=== PATIENT | female | born 1955 | race Caucasian/White ===

== ENCOUNTER → 2023-10-19 09:08 | Outpatient (CLI) | payer MEDICARE, OTHER, SELFPAY ==
[2023-10-19 10:00] LABS: Add Manual Diff / Slide Review NO; Basophils Absolute Auto 0 /uL (0-100); Basophils Percent Auto 0.4 % (0-2); Eosinophils Absolute Auto 100 /uL (0-450); Eosinophils Percent Auto 1.5 % (2-4); Hematocrit 38.4 % (36-46); Hemoglobin 13.2 g/dL (12.0-16.0); Lymphocytes Absolute Auto 1100 /uL (1100-4500); Lymphocytes Percent Auto 17.6 % (25-40); Mean Corpuscular HGB Conc 34.4 % (30-36); Mean Corpuscular Hemoglobin 29.6 PG (26-34); Mean Corpuscular Volume 86.1 fL (80-100); Monocytes Absolute Auto 400 /uL (0-900); Monocytes Percent Auto 6.6 % (3-14); Neutrophils Absolute Auto 4800 /uL (1500-7000); Neutrophils Percent Auto 73.9 % (50-75); Platelet Count 189 X10^3/uL (150-400); Red Blood Cell Count 4.46 X10^6/uL (4.0-5.2); Red Cell Distribution Width 13.5 % (11.6-14.8); White Blood Cell Count 6.5 X10^3/uL (4.5-11.0)
[2023-10-19 10:29] LABS: HEMOLYSIS < 15 (0-50); Iron 55 ug/dL (37-170)
[2023-10-19 10:32] LABS: Hemoglobin A1C% w Est Avg Glu 5.4 % (4.0-6.0)
[2023-10-19 10:35] LABS: Alanine Aminotransferase 23 IU/L (<35); Albumin 4.5 g/dL (3.5-5.0); Albumin Globulin Ratio 1.9 (1.0-2.8); Alkaline Phosphatase 85 U/L (38-126); Aspartate Aminotransferase 22 IU/L (14-36); BUN Creatinine Ratio 28.4 (6-22); Bilirubin Total 0.5 mg/dL (0.2-1.3); Blood Urea Nitrogen 23 mg/dL (7-17); Calcium 9.3 mg/dL (8.4-10.2); Carbon Dioxide 24 mmol/L (22-32); Chloride 106 mmol/L (98-107); Cholesterol 188 mg/dL (140-199); Estimated Glomerular Filt Rate > 60 mL/min (>60); Globulin 2.4 g/dL (1.7-4.1); Glucose 101 mg/dL (80-110); HDL Cholesterol 55 mg/dL (40-60); HEMOLYSIS < 15 (0-50); LDL Cholesterol Calculated 106 mg/dL (<100); Potassium 4.2 mmol/L (3.4-5.1); Sodium 139 mmol/L (137-145); Total Protein 6.9 g/dL (6.3-8.2); Triglycerides 133 mg/dL (35-150)
[2023-10-19 10:41] LABS: Percent Iron Saturation 17 % (15-50); Total Iron Binding Capacity 315 ug/dL (265-497); Transferrin 243 mg/dL (206-381)
[2023-10-19 10:46] LABS: Free T3, Triiodothyronine Free 3.56 pg/mL (2.77-5.27); Free T4, Direct Thyroxine 1.22 ng/dL (0.78-2.19)
[2023-10-19 10:59] LABS: Thyroid Stimulating Hormone 1.35 uIU/mL (0.47-4.68)
[2023-10-19 11:10] LABS: Ferritin 136 ng/mL (11-264)
== END ==
PROVIDERS: PCP Student in an Organized Health Care Education/Training Program; Referring Provider Student in an Organized Health Care Education/Training Program; Visit Provider Student in an Organized Health Care Education/Training Program
DX: E88.9 Metabolic disorder, unspecified (principal); Z86.2 Personal history of diseases of the blood and blood-forming organs and certain disorders involving the immune mechanism
CPT/HCPCS: 36415; 80053; 80061; 82728; 83036; 83540; 83550; 84439; 84443; 84481; 85025

== ENCOUNTER → 2023-11-17 12:42 | Outpatient (CLI) | payer MEDICARE, OTHER, SELFPAY ==
--- NOTE | 2023-11-17 12:43 | DI.MG.S_ITS ---
BILATERAL DIGITAL SCREENING MAMMOGRAM 3D/2D WITH CAD: 11/17/2023 CLINICAL: Routine screening. Comparison is made to exams dated: 07/07/2022 mammogram, 04/27/2021 mammogram, and 01/28/2020 mammogram - [facility]. The breasts are heterogeneously dense, which may obscure small masses (category c / 51-75% glandular tissue). Current study was also evaluated with a Computer Aided Detection (CAD) system. No significant masses, calcifications, or other findings are seen in either breast. There has been no significant interval change. IMPRESSION: NEGATIVE There is no mammographic evidence of malignancy. A 1 year screening mammogram is recommended. Based on the Tyrer Cuzick model (a risk assessment model) the patient's lifetime risk is 6.2% and her 10 year risk is 3.4%. According to the ACR, ACS, and NCCN guidelines, an annual breast MRI exam along with mammogram is recommended if the patient's lifetime risk is 20% or greater. This exam was interpreted at Station ID: [id number]. NOTE: For mammograms, a report in lay terms will be sent to the patient. Approximately 15% of breast malignancies will not be visualized mammographically. In the management of a palpable breast mass, a negative mammogram must not discourage biopsy of a clinically suspicious lesion. Electronically Signed By: Dom king/nadia:11/17/2023 17:12:04 letter sent: Normal Exam ACR BI-RADS Category 1: Negative
== END ==
PROVIDERS: PCP Student in an Organized Health Care Education/Training Program; Referring Provider Student in an Organized Health Care Education/Training Program; Visit Provider Student in an Organized Health Care Education/Training Program
DX: Z12.31 Encounter for screening mammogram for malignant neoplasm of breast (principal); R92.333 Mammographic heterogeneous density, bilateral breasts
CPT/HCPCS: 77063; 77067

== ENCOUNTER 2024-05-13 13:51 | Emergency (ER) | payer MEDICARE, OTHER, SELFPAY ==
[2024-05-13 13:53] VITALS: BP 170/71; PULSE 70; RESP 18; TEMP 37.1; O2SAT 97; BMI 34.0
--- NOTE | 2024-05-13 14:02 | ED.BACK ---
HPI - Back Pain/Injury <Ashlyn Prince PA-C - Last Filed: 05/13/24 19:23> General Chief Complaint: Back Pain/Injury Stated Complaint: Huge pain in right lower back hip Time Seen by Provider: 05/13/24 14:02 Source: patient History of Present Illness HPI Narrative: Ms. Hammer Is a pleasant 68-year-old female with a past medical history of hypothyroidism, prediabetes, obesity, ELANA who presents to the emergency department for right hip /right low back pain x1 day. 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 Today when she woke up she noticed severe, nausea inducing pain in the right low back /hip region. Pain is constant dull ache in lateral right hip. No tenderness or brusing. She is ambulatory but with pain. Lying on the right side improves the pain. Pain does not radiate into the abdomen, chest, down the leg. No numbness tingling or weakness. No direct trauma to the back. Reports that she did break her lumbar spine in 1974. Denies fevers, chills, dysuria, hematuria, constipation, diarrhea. She took 400 mg of ibuprofen 12:30 p.m. Related Data Home Medications Medication Instructions Recorded Confirmed cholecalciferol (vitamin D3) 125 mcg PO 10/19/23 05/15/24 mcg (5,000 unit) disintegrating tablet omega-3 240 tt-[id number] liver cap PO 10/19/23 05/15/24 oil 1,000 mg-vit A-vit D3 capsule (cod liver oil) Previous Rx's Medication Instructions Recorded levothyroxine 88 mcg tablet 88 mcg PO DAILY #90 tabs 03/04/24 metformin 500 mg tablet See Rx Instructions PO DAILY #30 04/11/24 tabs tirzepatide (weight loss) 2.5 2.5 mg (0.5 mL) SUBCUT QWEEK #2 mL 05/15/24 mg/0.5 mL subcutaneous pen injector (Zepbound) Allergies Allergy/AdvReac Type Severity Reaction Status Date / Time epinephrine Allergy Severe Anaphylaxis Verified 05/15/24 14:49 tolazamide [From Tolinase] Allergy Severe Anaphylaxis Verified 05/15/24 14:49 Asprine Allergy Hives Uncoded 05/15/24 14:49 Review of Systems <Ashlyn Prince PA-C - Last Filed: 05/13/24 19:23> Review of Systems ROS Unobtainable: All systems reviewed & are unremarkable except as noted in HPI and below Patient History <Ashlyn Prince PA-C - Last Filed: 05/13/24 19:23> Medical History History of live Hearing decreased Wears glasses Eczema Anxiety Gout (~2003) Fractures Knee sprain (~2021) Ankle sprain COVID (~2019) Mumps (~1962) Measles (~1962) Chicken pox (~1961) Anemia Sleep apnea Surgical History Anesthesia History of colonoscopy S/P wrist surgery (~09/2010) History of dental surgery Family History Father History of heart disease Stroke Mother Cancer History of heart disease Hypertension Grandmother Diabetes mellitus Stroke Grandfather Cancer Smoking Status: Never smoker Exam <Ashlyn Prince PA-C - Last Filed: 05/13/24 19:23> Narrative Exam Narrative: GENERAL: 68 year old patient appears stated age. Well-developed patient, in no acute distress. Ambulatory. HEAD: Atraumatic. Normocephalic. EYES: No scleral icterus. No injection or drainage. NECK: Trachea midline. Cervical ROM intact. CARDIOVASCULAR: Regular rate and rhythm. RESPIRATORY: Nonlabored respirations. Speaking in clear, full sentences. Clear to auscultation. Breath sounds equal bilaterally. No wheezes, rales, or rhonchi. GASTROINTESTINAL: Abdomen soft, non-tender, nondistended. Normal BS. EXTREMITIES: No edema or joint tenderness. Brisk cap refill on toes, palpable Dp pulses BL. BACK: No midline spinal tenderness. Subjective pain in the right lateral glute region /right SI joint region, no overlying skin changes. NEURO: AOx3. Clear speech. Moves all 4 extremities appropriately. Sensation intact to light touch on bilateral plantar and dorsal feet. SKIN: No rash or erythema of visible areas Initial Vital Signs Initial Vital Signs: Vital Signs Temperature 98.8 F 05/13/24 13:53 Pulse Rate 70 05/13/24 13:53 Respiratory Rate 18 05/13/24 13:53 Blood Pressure 170/71 H 05/13/24 13:53 Pulse Oximetry 97 05/13/24 13:53 Oxygen Delivery Method Room Air 05/13/24 13:53 <Meghan Shah DO - Last Filed: 05/17/24 03:27> Initial Vital Signs Initial Vital Signs: Vital Signs Temperature 98.8 F 05/13/24 13:53 Pulse Rate 70 05/13/24 13:53 Respiratory Rate 18 05/13/24 13:53 Blood Pressure 170/71 H 05/13/24 13:53 Pulse Oximetry 97 05/13/24 13:53 Oxygen Delivery Method Room Air 05/13/24 13:53 Course <Ashlyn Prince PA-C - Last Filed: 05/13/24 19:23> Orders Ordered: Discontinued Medications Acetaminophen (Acetaminophen 325 Mg Tablet) 975 mg PO NOW ONE Stop: 05/13/24 14:16 Last Admin: 05/13/24 14:22 Dose: 975 mg Documented By: SPF Ketorolac Tromethamine (Ketorolac 30 Mg/Ml Vial) 15 mg IM NOW ONE Stop: 05/13/24 14:16 Last Admin: 05/13/24 14:23 Dose: 15 mg Documented By: SPF Lidocaine (Lidocaine 5% Patch) 1 each TOP NOW ONE Stop: 05/13/24 14:16 Last Admin: 05/13/24 14:23 Dose: 1 each Documented By: SPF Vital Signs Vital signs: Vital Signs - 8 hr 05/13/24 13:53 05/13/24 17:30 Temperature 98.8 F Pulse Rate 70 69 Respiratory Rate 18 18 Blood Pressure 170/71 H 117/58 L Pulse Oximetry 97 94 Oxygen Delivery Method Room Air Room Air <Meghan Shah DO - Last Filed: 05/17/24 03:27> Orders Ordered: Discontinued Medications Acetaminophen (Acetaminophen 325 Mg Tablet) 975 mg PO NOW ONE Stop: 05/13/24 14:16 Last Admin: 05/13/24 14:22 Dose: 975 mg Documented By: SPF Ketorolac Tromethamine (Ketorolac 30 Mg/Ml Vial) 15 mg IM NOW ONE Stop: 05/13/24 14:16 Last Admin: 05/13/24 14:23 Dose: 15 mg Documented By: NORA Lidocaine (Lidocaine 5% Patch) 1 each TOP NOW ONE Stop: 05/13/24 14:16 Last Admin: 05/13/24 14:23 Dose: 1 each Documented By: NORA Vital Signs Vital signs: Vital Signs - 8 hr 05/13/24 13:53 05/13/24 17:30 Temperature 98.8 F Pulse Rate 70 69 Respiratory Rate 18 18 Blood Pressure 170/71 H 117/58 L Pulse Oximetry 97 94 Oxygen Delivery Method Room Air Room Air MDM - Back Pain/Injury <Ashlyn Prince PA-C - Last Filed: 05/13/24 19:23> Medical Records Attestation: I reviewed the patient's medical records. Lab Data Labs: Lab Results 05/13/24 Range/Units 14:34 Urine RBC 0-1/hpf (0-5/HPF) Urine WBC 1-5/hpf (0-5/HPF) Ur Squamous Epith Cells 1-5 /hpf (0-5/HPF) Urine Bacteria Occasional (0-1) (None) Urine Mucus 1+ H (Negative) Ur Culture Indicated? Cult not indicated Vol Urine Centrifuged Low vol <10ml (spun) A Urine Dip Bedside Urine Glucose Negative Bedside Urine Bilirubin - Negative Bedside Urine Ketone - Negative Urine Specific Pettus 1.025 Bedside Urine Occult Blood +/- Bedside Urine pH 6 Bedside Urine Protein +/- 15 Bedside Urine Urobilinogen - Negative Bedside Urine Nitrite - Negative Bedside Urine Leukocytes + 70 Esterase Imaging Data KUB X-Ray: Radiologist's Impression: PROCEDURE: XR KUB INDICATIONS: right hip pain; low back pain; old lumbar fx TECHNIQUE: One view of the abdomen acquired. COMPARISON: None. FINDINGS: Surgical changes and devices: None. Bowel: Bowel gas pattern is normal. Soft tissues: No suspicious abdominal calcifications. Visualized solid organ contours appear normal in size. Bones: No suspicious bony lesions. IMPRESSION: No acute abnormality. R Hip/Pelvis X-ray: Radiologist's Impression: PROCEDURE: XR HIP W PEL IF DONE RT 2V INDICATIONS: right hip pain TECHNIQUE: 2 views of the hip were acquired. COMPARISON: None. FINDINGS: Bones: No fractures or dislocations. No suspicious bony lesions. The visualized pelvic ring appears intact. Soft tissues: No suspicious soft tissue calcifications or masses. IMPRESSION: No acute bony abnormality. MDM Narrative Medical decision making narrative: 68-year-old female with a past medical history of hypothyroidism, prediabetes, obesity, ELANA who presents to the emergency department for right hip /right low back pain x1 day. Differential diagnosis includes but is not limited to sacroiliitis, muscle strain, lumbar strain, lumbar radiculopathy, hip osteoarthritis, hip fracture, ureterolithiasis, UTI, etc. On exam the patient is in no acute distress, nontoxic appearing, vital signs within normal limits except for elevated blood pressure. Patient is having lateral right hip pain. No direct trauma. She is ambulatory and lower extremities are neurovascularly intact. WIll check KUB XR & R hip/pelvis. treat with Toradol Tylenol and Lidoderm, patient declines opioids. We will check UA to rule out infection or gross blood. Urinalysis reveals minor contamination, no signs of infection. X-ray KUB and x-ray revealed no stones, no bony abnormalities fractures or dislocations. Patient's pain improved significantly during ED stay. At this time suspect a right hip strain, recommended supportive care with ibuprofen / acetaminophen, rest, gentle stretching and exercise. She has a follow up appointment with her PCP on Monday. We discussed strict ED return precautions. She verbalized understanding of all information is agreeable to the plan. She is stable for discharge home. <Meghan Shah, DO - Last Filed: 05/17/24 03:27> Lab Data Labs: Lab Results 05/13/24 Range/Units 14:34 Urine RBC 0-1/hpf (0-5/HPF) Urine WBC 1-5/hpf (0-5/HPF) Ur Squamous Epith Cells 1-5 /hpf (0-5/HPF) Urine Bacteria Occasional (0-1) (None) Urine Mucus 1+ H (Negative) Ur Culture Indicated? Cult not indicated Vol Urine Centrifuged Low vol <10ml (spun) A Urine Dip Bedside Urine Glucose Negative Bedside Urine Bilirubin - Negative Bedside Urine Ketone - Negative Urine Specific Pettus 1.025 Bedside Urine Occult Blood +/- Bedside Urine pH 6 Bedside Urine Protein +/- 15 Bedside Urine Urobilinogen - Negative Bedside Urine Nitrite - Negative Bedside Urine Leukocytes + 70 Esterase Discharge Plan Departure Patient Disposition: Home Clinical Impression: Strain of muscle of right hip Qualifiers: Encounter type: initial encounter Qualified Code(s): S76.011A - Strain of muscle, fascia and tendon of right hip, initial encounter Instructions: DI for Hip Pain Activity Restrictions/Additional Instructions: Dear Ms. Hammer, Thank you for coming to the emergency department. Today you were evaluated for pain in the low back and right hip. Your x-rays revealed no bony abnormalities. Your urine test was negative for infection. At this time I am most concerned that your right hip pain is related to a possible muscle strain. Please rest, use ice and heat therapy on the hip, and use ibuprofen and Tylenol for pain. You may perform gentle stretching and exercise but your pain needs to be your limiting factor. Please take Ibuprofen (Motrin/Advil) or Acetaminophen (Tylenol) for pain. These are available over the counter. You may take Ibuprofen 600 mg every 8 hours with food for pain. You may also take Acetaminophen 650 mg every 4-6 hours for pain. Do not exceed 3000 mg of Tylenol a day as this can cause liver damage. Do not drink alcohol with either of these medications. Please follow up with your primary care doctor within the next 2-3 days for ER follow-up. (If you do not have a PCP you can call [phone]. to schedule an appointment with an [facility] Primary Care Provider) IF YOU DEVELOP ANY NEW OR WORSENING SYMPTOMS, RETURN TO THE ER! Please read the attached instructions, they highlight more specific treatments and interventions for you at home. Thank you for letting me participate in your care, Ashlyn Prince PA-C Prescriptions: No Action cholecalciferol (vitamin D3) 125 mcg (5,000 unit) tablet,disintegrating PO cod liver oil 240-1,000 mg capsule PO metformin 500 mg tablet See Rx Instructions PO DAILY Qty: 30 3RF Rx Instructions: Take 1/2 tablet x 14 days, then increase to full tablet for rest of month. levothyroxine 88 mcg tablet 88 mcg PO DAILY Qty: 90 0RF Zepbound 2.5 mg/0.5 mL pen injector 2.5 mg SUBCUT QWEEK Qty: 2 0RF Rx Instructions: for 4 weeks Referrals: Simran Alston MD [Primary Care Provider] - Stand Alone Forms: Patient Portal/API/Survey ED Sign-out <Meghan Shah DO - Last Filed: 05/17/24 03:27> Cosign ED Attending Dora Attestation: I was immediately available in the department for consultation.
--- NOTE | 2024-05-13 14:15 | DI.RAD.S_ITS ---
PROCEDURE: XR KUB INDICATIONS: right hip pain; low back pain; old lumbar fx TECHNIQUE: One view of the abdomen acquired. COMPARISON: None. FINDINGS: Surgical changes and devices: None. Bowel: Bowel gas pattern is normal. Soft tissues: No suspicious abdominal calcifications. Visualized solid organ contours appear normal in size. Bones: No suspicious bony lesions. IMPRESSION: No acute abnormality. Dictated by: Imtiaz Lewis M.D. on 05/13/2024 at 16:39 Approved by: Imtiaz Lewis M.D. on 05/13/2024 at 16:40
--- NOTE | 2024-05-13 14:15 | DI.RAD.S_ITS ---
PROCEDURE: XR HIP W PEL IF DONE RT 2V INDICATIONS: right hip pain TECHNIQUE: 2 views of the hip were acquired. COMPARISON: None. FINDINGS: Bones: No fractures or dislocations. No suspicious bony lesions. The visualized pelvic ring appears intact. Soft tissues: No suspicious soft tissue calcifications or masses. IMPRESSION: No acute bony abnormality. Dictated by: Imtiaz Lewis M.D. on 05/13/2024 at 15:18 Approved by: Imtiaz Lewis M.D. on 05/13/2024 at 15:19
[2024-05-13] MEDS: ACETAMINOPHEN 325 MG TABLET 975 MG PO (14:22)
[2024-05-13] MEDS: LIDOCAINE 5% PATCH 1 EACH TOP (14:23)
[2024-05-13] MEDS: KETOROLAC 30 MG/ML VIAL 15 MG IM (14:23)
[2024-05-13 15:01] LABS: Urine Volume Low Vol <10mL (spun)
[2024-05-13 15:02] LABS: Bacteria Urine Occasional (0-1); Culture Indicated Urine Cult Not Indicated; Mucus Urine 1+ (Negative); RBC Urine 0-1/HPF (0-5/HPF); Squamous Epithelial Cell Urine 1-5 /HPF (0-5/HPF); WBC Urine 1-5/HPF (0-5/HPF)
[2024-05-13 17:30] VITALS: BP 117/58; PULSE 69; RESP 18; O2SAT 94
== END 2024-05-13 17:30 | disposition home or self-care (01) ==
PROVIDERS: Emergency Provider Physician Assistant; PCP Student in an Organized Health Care Education/Training Program
DX: S76.011A Strain of muscle, fascia and tendon of right hip, initial encounter (principal); X58.XXXA Exposure to other specified factors, initial encounter
CPT/HCPCS: 73502; 74018; 81003; 81015; 96372; 99283; 99284; J1885

== ENCOUNTER → 2025-01-02 13:25 | Outpatient (CLI) | payer MEDICARE, OTHER, SELFPAY ==
--- NOTE | 2025-01-02 13:26 | DI.MG.S_ITS ---
MM screening mammo BI: 01/02/2025. BI-RADS: 1 CLINICAL: 69-year old female for bilateral screening mammogram. Tyrer-Cuzick lifetime risk of 5.4%. No personal or first-degree family history of breast cancer. PRIOR EXAMS 11/17/2023, outside priors 07/07/2022, 04/27/2021, 01/28/2020. MAMMOGRAPHY TECHNIQUE: 2D and 3D (tomosynthesis) digital mammographic views obtained, with additional images as needed for full coverage. Current study was also evaluated with a Computer Aided Detection (CAD) system. DENSITY C. The breasts are heterogeneously dense, which may obscure small masses. MAMMOGRAPHY FINDINGS Bilateral: No suspicious mass, asymmetry, microcalcification, or other abnormality seen. IMPRESSION: * No evidence of malignancy. RECOMMENDATIONS Bilateral * Annual screening mammography. OVERALL ASSESSMENT CATEGORY BI-RADS-1: Negative. The [employer] recommends annual screening mammography beginning at age 40 for women with average risk of breast cancer. ELECTRONICALLY SIGNED: Dom Leblanc M.D. on 01/03/2025 at 07:05:37 AM PT Interpreting Station ID: [id number]
== END ==
LOC: MAMMO 13:26
PROVIDERS: PCP Student in an Organized Health Care Education/Training Program; Referring Provider Student in an Organized Health Care Education/Training Program; Visit Provider Student in an Organized Health Care Education/Training Program
DX: Z12.31 Encounter for screening mammogram for malignant neoplasm of breast (principal); R92.333 Mammographic heterogeneous density, bilateral breasts
CPT/HCPCS: 77063; 77067